=== PATIENT | male | born 1985 | race African-American/Black ===

== ENCOUNTER 2017-01-02 08:34 | Emergency (ER) | payer MEDICAID ==
[~2017-01-02 08:34] MED LIST: CLON2TAB3; HYDR-1421; PHEN100C70; QUET25TA37; ZOLP10TA
[2017-01-02 08:46] VITALS: BP 148/107
== END 2017-01-02 09:40 | disposition home or self-care (01) ==
LOC: ER 08:34
DX: F20.9 Schizophrenia, unspecified (principal); F17.210 Nicotine dependence, cigarettes, uncomplicated; Z76.0 Encounter for issue of repeat prescription; Z79.899 Other long term (current) drug therapy

== ENCOUNTER 2017-01-20 08:14 | Emergency (ER) | payer MEDICAID ==
[~2017-01-20] VITALS: Ht 182.9 cm; Wt 95.3 kg
[2017-01-20 10:05] VITALS: BP 143/98
== END 2017-01-20 10:27 | disposition home or self-care (01) ==
LOC: ER 08:14
DX: M54.5 Low back pain (principal); G89.29 Other chronic pain; Z76.0 Encounter for issue of repeat prescription; F17.210 Nicotine dependence, cigarettes, uncomplicated

== ENCOUNTER 2017-03-10 06:33 | Emergency (ER) | payer MEDICAID ==
[~2017-03-10] VITALS: Ht 177.8 cm; Wt 96.4 kg
[2017-03-10 06:44] VITALS: BP 150/107
== END 2017-03-10 07:45 | disposition home or self-care (01) ==
LOC: ER 06:35
DX: M54.5 Low back pain (principal); Z76.0 Encounter for issue of repeat prescription; F17.210 Nicotine dependence, cigarettes, uncomplicated; Z79.899 Other long term (current) drug therapy

== ENCOUNTER 2017-03-15 01:46 | Emergency (ER) | payer MEDICAID ==
[~2017-03-15] VITALS: Ht 182.9 cm; Wt 90.7 kg
[2017-03-15 02:34] VITALS: BP 124/91
[2017-03-15] MEDS ORDERED: KETOROLAC TROMETH 60MG/2ML VIAL IM ONE (04:15)
== END 2017-03-15 04:50 | disposition home or self-care (01) ==
LOC: ER 01:48
DX: K02.9 Dental caries, unspecified (principal); F17.210 Nicotine dependence, cigarettes, uncomplicated; Z79.899 Other long term (current) drug therapy
CPT/HCPCS: 96372; 99283; J1885

== ENCOUNTER 2017-04-06 02:36 | Emergency (ER) | payer MEDICAID ==
[~2017-04-06] VITALS: Ht 185.4 cm; Wt 83.9 kg
[2017-04-06] MEDS ORDERED: LACTULOSE 20Gm/30ML SOLN PO ONE (07:00)
[2017-04-06] MEDS ORDERED: FLEET ENEMA(ADULT) 135 ML PR ONE (07:00)
[2017-04-06 07:35] VITALS: BP 132/78
== END 2017-04-06 07:54 | disposition home or self-care (01) ==
LOC: ER 02:44
DX: K59.00 Constipation, unspecified (principal); F11.10 Opioid abuse, uncomplicated; M19.90 Unspecified osteoarthritis, unspecified site; F17.210 Nicotine dependence, cigarettes, uncomplicated
CPT/HCPCS: 74000

== ENCOUNTER 2017-06-16 09:44 | Emergency (ER) | payer MEDICAID ==
[~2017-06-16] VITALS: Ht 185.4 cm; Wt 83.9 kg
[2017-06-16 09:52] VITALS: BP 131/77
== END 2017-06-16 10:31 | disposition home or self-care (01) ==
LOC: ER 09:44
DX: F20.9 Schizophrenia, unspecified (principal); F41.9 Anxiety disorder, unspecified; F17.210 Nicotine dependence, cigarettes, uncomplicated; M19.90 Unspecified osteoarthritis, unspecified site; Z76.0 Encounter for issue of repeat prescription; Z79.899 Other long term (current) drug therapy

== ENCOUNTER 2018-05-31 23:53 | Emergency (ER) | payer MEDICAID ==
[~2018-05-31] VITALS: Ht 182.9 cm; Wt 81.6 kg
[~2018-05-31 23:53] MED LIST changes: -CLON2TAB3; +CLON2TAB6
[2018-06-01 01:04] LABS: Urine Bacteria NONE SEEN /hpf (None Seen); Urine Blood Negative /uL (Negative); Urine Mucus FEW (None Seen); Urine Specific Gravity 1.029 (1.001-1.035); Urine WBC <1 /hpf (0 - 3)
[2018-06-01 01:20] LABS: Alcohol, Urine < 3.0 mg/dL (0-5); Amphetamine Screen, Urine NEGATIVE (NEGATIVE); Barbiturate Scree,Urine NEGATIVE (NEGATIVE); Cannabinoid Screen, Urine POSITIVE (NEGATIVE); Cocaine Screen, Urine NEGATIVE (NEGATIVE); Opiate Scree,Urine NEGATIVE (NEGATIVE); Phencyclidine Screen, Urine NEGATIVE (NEGATIVE)
[2018-06-01 01:34] LABS: Benzodiazephine Screen, Urine NEGATIVE (NEGATIVE)
[2018-06-01 05:44] VITALS: BP 110/58
[2018-06-01] MEDS ORDERED: SODIUM CHLORIDE 0.9% 1,000 ML IV ONE (05:45)
== END 2018-06-01 06:47 | disposition home or self-care (01) ==
LOC: ER 23:56
DX: E86.0 Dehydration (principal); M19.90 Unspecified osteoarthritis, unspecified site; Z79.899 Other long term (current) drug therapy; Z88.8 Allergy status to other drugs, medicaments and biological substances
CPT/HCPCS: 80307; 81001; 96360; 99283; J7030

== ENCOUNTER → 2018-06-22 | Emergency (ER) | payer MEDICAID | END | disposition left against medical advice (07) | LOC: ER 04:24 | DX: Z76.0 Encounter for issue of repeat prescription (principal); Z53.21 Procedure and treatment not carried out due to patient leaving prior to being seen by health care provider ==

== ENCOUNTER 2021-03-29 23:59 | Emergency (ER) | payer MEDICAID ==
[~2021-03-29] VITALS: Ht 185.4 cm; Wt 106.6 kg
[~2021-03-29 23:59] MED LIST changes: +CLON-857; -CLON2TAB6; +PHEN100C; -PHEN100C70
[2021-03-30 01:44] VITALS: BP 125/89
[2021-03-30] MEDS ORDERED: OLANZapine 5 MG TAB PO ONE (02:00)
== END 2021-03-30 02:19 | disposition home or self-care (01) ==
LOC: ER 23:59
DX: R56.9 Unspecified convulsions (principal); J45.909 Unspecified asthma, uncomplicated; F20.9 Schizophrenia, unspecified; E66.9 Obesity, unspecified; F17.210 Nicotine dependence, cigarettes, uncomplicated; F12.10 Cannabis abuse, uncomplicated; Z76.0 Encounter for issue of repeat prescription; Z68.31 Body mass index [BMI] 31.0-31.9, adult

== ENCOUNTER 2021-10-07 18:41 | Emergency (ER) | payer MEDICAID ==
[~2021-10-07] VITALS: Ht 185.4 cm; Wt 106.6 kg
[2021-10-07 18:57] VITALS: BP 120/93
== END 2021-10-07 20:42 | disposition left against medical advice (07) ==
LOC: ER 18:41
DX: Z76.0 Encounter for issue of repeat prescription (principal); Z53.21 Procedure and treatment not carried out due to patient leaving prior to being seen by health care provider

== ENCOUNTER 2021-10-09 15:39 | Emergency (ER) | payer MEDICAID ==
[~2021-10-09] VITALS: Ht 185.4 cm; Wt 99.8 kg
[2021-10-09] MEDS ORDERED: SODIUM CHLORIDE 0.9% 1,000 ML IV ONE (17:00)
[2021-10-09 17:44] LABS: Basophils # (auto) 0.1 10 ^3/uL (0-0.2); Eosinophils # (auto) 0.1 10 ^3/uL (0-0.8); Hematocrit 40.3 % (41.0-53.0); Hemoglobin 13.8 g/dL (13.5-17.5); Lymphocytes # (auto) 2.9 10 ^3/uL (0.4-5.4); Lymphocytes % (auto) 42.6 % (10.0-50.0); Mean Corpuscular Hemoglobin 28.8 pg (28.0-32.0); Mean Corpuscular Hgb Conc. 34.3 g/dL (32.0-36.0); Monocytes # (auto) 0.4 10 ^3/uL (0-1.3); Monocytes % (auto) 5.2 % (0.0-12.0); Neutrophils # (auto) 3.4 10 ^3/uL (1.6-8.6); Neutrophils % (auto) 50.2 % (37.0-80.0); Nucleated Red Blood Cells % 0.1 %; White Blood Cell 6.8 10^3/uL (4.4-10.8)
[2021-10-09 18:02] LABS: Alanine Aminotransferase 43 U/L (16-61); Albumin 3.7 g/dL (3.4-5.0); Anion Gap 4 (5-15); Aspartate Aminotransferase 30 U/L (15-37); Blood Alcohol < 3.0 mg/dL (0-5); Blood Urea Nitrogen 14 mg/dL (7-18); Calcium 8.8 mg/dL (8.5-10.1); Carbon Dioxide 30 mmol/L (21-32); Chloride 106 mmol/L (98-107); Glucose 143 mg/dL (74-106); Magnesium 2.5 mg/dL (1.6-2.6); Potassium 3.9 mmol/L (3.5-5.1); Sodium 140 mmol/L (136-145)
[2021-10-09 18:04] LABS: Alkaline Phosphatase 84 U/L (45-117); Bilirubin, Total 0.6 mg/dL (0.2-1.0); GFR African American 108 mL/min; GFR Non-African American 89 mL/min; Total Protein 7.2 g/dL (6.4-8.2)
[2021-10-10] MEDS ORDERED: SODIUM CHLORIDE 0.9% 1,000 ML IVB ONE (08:00)
[2021-10-10 10:13] LABS: Urine WBC None Seen /hpf (0 - 3)
[2021-10-10 10:27] LABS: Urine Bacteria NONE SEEN /hpf (None Seen); Urine Blood Negative /uL (Negative); Urine Specific Gravity 1.008 (1.001-1.035)
[2021-10-10 10:43] LABS: Alcohol, Urine < 3.0 mg/dL (0-10); Amphetamine Screen, Urine NEGATIVE (NEGATIVE); Barbiturate Scree,Urine NEGATIVE (NEGATIVE); Benzodiazephine Screen, Urine NEGATIVE (NEGATIVE); Cannabinoid Screen, Urine POSITIVE (NEGATIVE); Cocaine Screen, Urine NEGATIVE (NEGATIVE); Opiate Scree,Urine NEGATIVE (NEGATIVE); Phencyclidine Screen, Urine NEGATIVE (NEGATIVE)
[2021-10-11 06:30] VITALS: BP 124/89
== END 2021-10-11 09:10 | disposition home or self-care (01) ==
LOC: ER 15:39
DX: R44.3 Hallucinations, unspecified (principal); J45.909 Unspecified asthma, uncomplicated; F17.210 Nicotine dependence, cigarettes, uncomplicated; Z91.14 Patient's other noncompliance with medication regimen; Z79.899 Other long term (current) drug therapy; Z88.8 Allergy status to other drugs, medicaments and biological substances
CPT/HCPCS: 36415; 80053; 80307; 80320; 81001; 83735; 85025; 96361; 96365; 99285; J1953; J7030; J7060

== ENCOUNTER 2022-03-20 16:13 | Emergency (ER) | payer MEDICAID ==
[~2022-03-20] VITALS: Ht 185.4 cm; Wt 113.1 kg
[2022-03-20 16:42] VITALS: BP 114/89
== END 2022-03-21 07:35 | disposition left against medical advice (07) ==
LOC: ER 16:13
DX: R51.9 Headache, unspecified (principal); G89.29 Other chronic pain; Z76.0 Encounter for issue of repeat prescription; Z53.21 Procedure and treatment not carried out due to patient leaving prior to being seen by health care provider